=== PATIENT | male | born 1965 | race Caucasian/White ===

== ENCOUNTER 2016-12-18 18:12 | Observation (INO) | payer OTHER ==
[2016-12-18] MEDS ORDERED: Sodium Chloride 0.9% 1000 ML 1,000 ML IV STA (18:51)
[2016-12-18] MEDS ORDERED: Vancomycin 1GM/ Ns 250ML*** 1 GM/250 ML IVPB IV ONE (19:01)
[2016-12-18] MEDS ORDERED: Sodium Chloride 0.9% 1000 ML 1,000 ML ONE ×2 (19:02→20:47)
[2016-12-18] MEDS ORDERED: Vancomycin 1GM/ Ns 250ML*** 0 ML IV ONE (19:17)
[2016-12-18 19:20] LABS: BASOPHIL % 0.3 % (0.0-0.4); Eosinophil % 4.6 % (0.00-5.0); Granulocytes % 58.7 % (36.0-66.0); Lymphocytes % 25.2 % (24.0-44.0); Mean Cell Volume 83.8 fl (78-100); Mean Corpuscular Hemoglobin 26.9 pg (26-32); Mean Platelet Volume 9.7 fl (6-9.5); Monocytes % 11.2 % (0.0-12.0); Platelet Count 322 K/mm3 (150-450); Red Blood Count 5.42 M/mm3 (4.1-5.6); Red Cell Distribution Width 15.4 % (11.5-14.0); White Blood Count 8.8 K/mm3 (4.0-10.5)
[2016-12-18 19:35] LABS: ANION GAP 10.2 MEQ/L (5-15); BLOOD UREA NITROGEN 14 mg/dL (9-20); CHLORIDE 105 mEq/L (98-107); Carbon Dioxide 28.2 mEq/L (21-32); Glucose 102 MG/DL (70-110); Potassium 4.1 mEq/L (3.5-5.1); SODIUM 139 mEq/L (136-145)
[2016-12-18] MEDS ORDERED: Zofran 4 MG/2 ML VIAL IV ONE (19:39)
[2016-12-18] MEDS ORDERED: Levofloxacin 500MG/100ML D5W 500 MG/100 ML BAG IV STA (19:39)
[2016-12-18] MEDS ORDERED: Hydromorphone 1 mg/ml Ampule IV ONE (19:40)
--- NOTE | 2016-12-18 19:41 | ERPHSYRPT ---
- History of Present Illness Time Seen by Provider: 12/18/16 18:30 Source: patient Exam Limitations: clinical condition Patient Subjective Stated Complaint: PT REPORTS ULCER ON HIS LOWER LEFT LEG THAT HE HAS BEEN DOCTORING AT HOME ET STOP PICKING AT-STATES THAT THE PAIN HAS GOTTEN TO BAD-REPORTS BROWN TO GREEN DRAINAGE Triage Nursing Assessment: PT ALERT-ANSWERING ALL QEUSTIONS CORRECTLY-NO DRAINAGE NOTED AT THIS ITME BRENDA 4 X 2 ULCER NOTED-BRENDA 1 X 1 NOTED Physician History: PATIENT COMPLAINS OF PAINFUL ULCERATION OVER HIS LEFT LOWER CYR FOR MONTHS. DENIES FEVER OR CHILLS, TRAUMA OR INJURY. Method of Injury: other (DENIES INJURY) Occurred: other (ULCER FOR WEEKS) Severity of Pain-Max: moderate Severity of Pain-Current: moderate Lower Extremities Pain: leg: left Modifying Factors: Improves With: movement Associated Symptoms: other (PAIN IN CYR/CALF) Allergies/Adverse Reactions: penicillin G Allergy (Intermediate, Verified 12/18/16 18:23) Rash Penicillins Allergy (Verified 12/18/16 18:23) Home Medications: Gabapentin 400 mg [Neurontin 400 MG] 400 mg PO TID 11/03/14 [History] Lisinopril 20 mg [Zestril 20 MG] 20 mg PO DAILY 12/18/16 [History] Hx Tetanus, Diphtheria Vaccination/Date Given: Yes Hx Influenza Vaccination/Date Given: No Hx Pneumococcal Vaccination/Date Given: No Immunizations Up to Date: Yes - Review of Systems Constitutional: No Fever, No Chills Eyes: No Symptoms Ears, Nose, & Throat: No Symptoms Respiratory: No Symptoms, No Cough, No Dyspnea Cardiac: No Chest Pain, No Edema, No Syncope Abdominal/Gastrointestinal: No Symptoms, No Abdominal Pain, No Nausea, No Vomiting, No Diarrhea Genitourinary Symptoms: No Symptoms, No Dysuria Musculoskeletal: Other (LEG PAIN), No Back Pain, No Neck Pain Skin: Cellulitis, No Rash Neurological: No Symptoms, No Dizziness, No Focal Weakness, No Sensory Changes Psychological: No Symptoms Endocrine: No Symptoms All Other Systems: Reviewed and Negative - Past Medical History Pertinent Past Medical History: Yes Neurological History: Peripheral Neuropathy ENT History: No Pertinent History Cardiac History: Hypertension Respiratory History: No Pertinent History Endocrine Medical History: Diabetes Type II Musculoskeletal History: Other GI Medical History: No Pertinent History History: No Pertinent History Psycho-Social History: No Pertinent History Male Reproductive Disorders: No Pertinent History Other Medical History: Obesity; Recent Rotator Cuff Repair; Neurofibromatosis - Past Surgical History Past Surgical History: Yes Neuro Surgical History: No Pertinent History Cardiac: No Pertinent History Respiratory: No Pertinent History Gastrointestinal: No Pertinent History, Cholecystectomy Genitourinary: Kidney Surgery Musculoskeletal: No Pertinent History Other Surgical History: Something with the kidney, but doesn't remember - Social History Smoking Status: Never smoker Exposure to second hand smoke: No Drug Use: none Patient Lives Alone: No - Nursing Vital Signs Nursing Vital Signs: Initial Vital Signs Temperature 98.0 F Temperature Source Oral Pulse Rate 81 Respiratory Rate 18 Blood Pressure [] 138/88 Pain Intensity 10 - Physical Exam General Appearance: alert Eyes, Ears, Nose, Throat Exam: moist mucous membranes Neck Exam: non-tender, supple Cardiovascular/Respiratory Exam: chest non-tender, normal breath sounds, regular rate/rhythm, no respiratory distress Gastrointestinal/Abdominal Exam: non-tender, guarding Back Exam: normal inspection, No vertebral tenderness Legs Exam: left leg: pain, soft tissue tenderness (LEFT CALF AND CYR, THERE IS A 4CM X 7CM DECUBITUS DISTAL 3RD CYR NO DRAINAGE) Neuro/Tendon Exam: normal sensation, normal motor functions Mental Status Exam: alert, oriented x 3, cooperative Skin Exam: normal color, warm, dry SpO2: 96 Oxygen Delivery: Room Air - Radiology Ultrasound Exam Left Venous Lower Extremity Ultrasound: discussed w/radiologist (NO EVIDENCE OF DVT) Ordered Tests: Active Orders 24 hr Category Date Time Status VENOUS UNILAT/LIMITED EXTREMIT [US] Stat Exams 12/18/16 18:59 Taken BLOOD CULTURE Stat Lab 12/18/16 19:11 Received BMP Stat Lab 12/18/16 19:11 Completed CBC W DIFF Stat Lab 12/18/16 19:11 Completed CULTURE,WOUND Stat Lab 12/18/16 18:51 Ordered Transfer Order Routine Transfer 12/18/16 20:33 Ordered Medication Summary Discontinued Medications Generic Name Dose Route Start Last Admin Trade Name Freq PRN Reason Stop Dose Admin Hydromorphone HCl 1 mg 12/18/16 19:40 12/18/16 19:52 Hydromorphone 1 Mg/Ml Ampule IV 12/18/16 19:41 1 mg STAT ONE Administration Hydromorphone HCl Confirm 12/18/16 19:48 Hydromorphone 1 Mg/Ml Ampule Administered 12/18/16 19:49 Dose 1 mg .ROUTE .STK-MED ONE Sodium Chloride 1,000 mls @ 999 mls/hr 12/18/16 18:51 12/18/16 19:13 Sodium Chloride 0.9% 1000 Ml IV 12/18/16 19:51 999 mls/hr .Q1H1M STA Administration Vancomycin HCl 1 gm in 250 mls @ 167 mls/hr 12/18/16 19:01 12/18/16 20:29 Vancomycin 1gm/ Ns 250ml IV 12/18/16 20:30 Not Given STAT ONE Sodium Chloride Confirm 12/18/16 19:02 Sodium Chloride 0.9% 1000 Ml Administered 12/18/16 19:03 Dose 1,000 mls @ ud .ROUTE .STK-MED ONE Vancomycin HCl Confirm 12/18/16 19:17 Vancomycin 1gm/ Ns 250ml Administered 12/18/16 19:18 Dose 250 mls @ ud IV .STK-MED ONE Levofloxacin/Dextrose 500 mg in 100 mls @ 100 mls/hr 12/18/16 19:39 12/18/16 19:52 Levofloxacin 500mg/100ml D5w IV 12/18/16 20:38 100 mls/hr STAT STA Administration Levofloxacin/Dextrose Confirm 12/18/16 19:48 Levofloxacin 500mg/100ml D5w Administered 12/18/16 19:49 Dose 500 mg in 100 mls @ ud IV .STK-MED ONE Ondansetron HCl 4 mg 12/18/16 19:39 12/18/16 19:52 Zofran 4 Mg/2 Ml Vial IV 12/18/16 19:40 4 mg STAT ONE Administration Ondansetron HCl Confirm 12/18/16 19:48 Zofran 4 Mg/2 Ml Vial Administered 12/18/16 19:49 Dose 4 mg .ROUTE .STK-MED ONE Lab/Rad Data: Laboratory Result Diagrams 12/18/16 19:11 12/18/16 19:11 Laboratory Results 12/18/16 12/18/16 Range/Units 19:11 19:11 WBC 8.8 (4.0-10.5) K/mm3 RBC 5.42 (4.1-5.6) M/mm3 Hgb 14.6 (12.5-18.0) gm/dl Hct 45.4 (42-50) % MCV 83.8 (78-100) fl MCH 26.9 (26-32) pg MCHC 32.2 (32-36) g/dl RDW 15.4 H (11.5-14.0) % Plt Count 322 (150-450) K/mm3 MPV 9.7 H (6-9.5) fl Gran % 58.7 (36.0-66.0) % Lymphocytes % 25.2 (24.0-44.0) % Monocytes % 11.2 (0.0-12.0) % Eosinophils % 4.6 (0.00-5.0) % Basophils % 0.3 (0.0-0.4) % Basophils # 0.03 (0-0.4) Sodium 139 (136-145) mEq/L Potassium 4.1 (3.5-5.1) mEq/L Chloride 105 (98-107) mEq/L Carbon Dioxide 28.2 (21-32) mEq/L Anion Gap 10.2 (5-15) MEQ/L BUN 14 (9-20) mg/dL Creatinine 0.84 (0.55-1.30) mg/dl Estimated GFR > 60 ML/MIN Glucose 102 (70-110) MG/DL Calcium 9.5 (8.5-10.1) mg/dL - Progress Progress Note: 12/18/16 20:21 PATIENT GIVEN LEVAQUIN 500MG IVPB AFTER 2 SETS OF BLOOD CULTURES OBTAINED. Discussed with : Stephan (DISCUSSED WITH DR KENT AT 2014 FOR OBSERVATION) - Departure Time of Disposition: 20:35 Departure Disposition: Observation Clinical Impression: LEFT LOWER EXTREMITY DECUBITI/CELLULITIS Condition: Stable Critical Care Time: No Referrals: RUT KENT [Primary Care Provider] -
[2016-12-18] MEDS ORDERED: Hydromorphone 1 mg/ml Ampule ONE (19:48)
[2016-12-18] MEDS ORDERED: Levofloxacin 500MG/100ML D5W 500 MG/100 ML BAG IV ONE (19:48)
[2016-12-18] MEDS ORDERED: Zofran 4 MG/2 ML VIAL ONE (19:48)
[2016-12-18] MEDS ORDERED: Sodium Chloride 0.9% 1000 ML 1,000 ML IV SCH (21:00)
[2016-12-18] MEDS ORDERED: TYLENOL 325 MG PO PRN (21:11)
[2016-12-18] MEDS ORDERED: Norco 10/325 MG Tablet PO PRN (21:11)
[2016-12-18] MEDS: Neurontin 400 MG PO SCH (22:06)
[2016-12-19] MEDS: Sodium Chloride 0.9% 1000 ML 1,000 ML IV SCH ×2 (00:13→14:07)
--- NOTE | 2016-12-19 08:24 | XRAY ---
Exam: Duplex Doppler venous ultrasound examination of the left lower extremity from 12/18/2016. Comparison: Duplex Doppler venous ultrasound examination of the left lower extremity from 10/31/2014. Indication: Left leg pain. Technique: Longitudinal and transverse real-time sonograms were obtained of the left lower extremity with grayscale imaging. In addition, longitudinal color flow images were obtained as well as Doppler tracings without and with augmentation. Findings: Associate Professor Of History sections of the left common femoral vein, proximal, mid, and distal superficial femoral vein, popliteal vein, and distal posterior tibial veins reveal normal color flow imaging and transducer compression at all deep venous segments. Spontaneous and phasic Doppler waveforms were noted with good augmentation at all levels. Normal color flow and Doppler signal augmentation was seen with an a cash applications representative sections of the left profunda femoral vein. In addition, some images of the greater saphenous vein within the proximal left thigh revealed normal color flow and spontaneous and phasic waveforms with good Doppler signal augmentation. Impression: 1. No findings of deep venous thrombosis are seen within the left lower extremity. Also, no superficial venous thrombosis is seen within the greater saphenous vein within the proximal left thigh.
[2016-12-19] MEDS ORDERED: Cleocin Phosphate IV 600 MG/4 ML IV SCH (09:15)
--- NOTE | 2016-12-19 09:23 | HP ---
HISTORY OF PRESENT ILLNESS: This is a 51 year-old man who presented to the emergency department last night. He reports that the sore on his left lower leg is getting worse with increasing surrounding erythema. He reports that he had some AKASH hose and when he pulled those off there was a water blister and the top of it seemed to off. He denies any fever. He states his leg has been sore. He reports otherwise he has been feeling well. He denies any fever. No chest pain. No shortness of breath. REVIEW OF SYSTEMS: No nausea or vomiting. He has a good appetite. He reports he has been watching his diet and losing weight. He continues to have some urinary urgency. Otherwise the review of systems is negative. PAST MEDICAL HISTORY: Hypertension. Erectile dysfunction. Neurofibromatosis type 1. Neuropathy. Obesity Hyperglycemia. Benign prostatic hypertrophy. PAST SURGICAL HISTORY: Right rotator cuff surgery with Dr. Fabricio Pink 10/02/2015. MEDICATIONS: Gabapentin 400 mg p.o. t.i.d., lisinopril 20 mg p.o. daily, Tamsulosin 0.4 mg p.o. daily. ALLERGIES: PENICILLIN, VANCOMYCIN REPORTS GIVES HIM JENNIFER SYNDROME. SOCIAL HISTORY: He is and lives with his . 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 He denies any tobacco use or alcohol use. FAMILY HISTORY: His mother had diabetes mellitus type 2 and when she was 64. His father had hemorrhagic stroke and when he was 72. PHYSICAL EXAMINATION: VITAL SIGNS: Temperature current 98.4F, temperature max 98.4F, heart rate 66 to 81, respiratory rate 17 to 20, blood pressure 112 to 138 over 55 to 88. Oxygen saturation 96 to 97% on room air. GENERAL: The patient is a pleasant talkative man sitting up in no acute distress. CVS: He has a regular rate and rhythm. No murmurs, gallops or rubs. CHEST: Clear to auscultation bilaterally. No crackles or wheezes. ABDOMEN: Soft, nontender, nondistended with normal bowel sounds. EXTREMITIES: He has approximately 9 x 4 cm clean base open sore of his left lower leg with 4 to 8 mm with surrounding erythema. No active drainage. No induration. There is tenderness around the open sore. Right leg there is no open wounds. He has multiple neurofibromas over his body. LABORATORY DATA AND TESTS: His CBC was within normal limits. BMP within normal limits. ASSESSMENT AND PLAN: 1) CELLULITIS OF HIS LEFT LOWER EXTREMITY: He was initially started on levofloxacin but he does have a history of methicillin resistant staphylococcus aureus so I am going to change this to clindamycin 300 mg IV every six hours. Will ask physical therapy to consult regarding the wound. 2) OPEN WOUND OF HIS LEFT LOWER LEG: Will ask physical therapy to consult. 3) HISTORY OF HYPERTENSION: His blood pressure is actually on the low end of normal this morning so will hold his oral antihypertensive at this time. 4) HISTORY OF NEUROPATHY: Will continue with the gabapentin.
[2016-12-19] MEDS: Neurontin 400 MG PO SCH ×3 (09:29→21:25)
[2016-12-19] MEDS: Cleocin Phosphate IV 300 MG/50 ML*** 300 MG/50 ML IVPB IV SCH ×3 (09:29→21:25)
[2016-12-19] MEDS: NORCO 5/325 MG PO PRN (09:43)
[2016-12-19] MEDS ORDERED: Levofloxacin 500MG/100ML D5W 500 MG/100 ML BAG IV SCH (10:00)
[2016-12-19] MEDS ORDERED: Zestril 20 MG PO SCH (10:00)
[2016-12-19] MEDS: Flomax 0.4 MG PO SCH (10:10)
[2016-12-20] MEDS: NORCO 5/325 MG PO PRN (00:29)
[2016-12-20] MEDS: Cleocin Phosphate IV 300 MG/50 ML*** 300 MG/50 ML IVPB IV SCH ×2 (03:06→08:46)
[2016-12-20 07:01] VITALS: BP 130/64; PULSE 68; O2SAT 98
--- NOTE | 2016-12-20 08:19 | PCM.DCORD ---
- Discharge Discharge Date: 12/20/16 Disposition: Home, Self-Care Condition: Fair Prescriptions: New Clindamycin HCl [Cleocin HCl] 300 mg PO QID #40 capsule Acetaminophen 325 mg [Tylenol 325 mg] 650 mg PO Q4H PRN PRN #0 tablet PRN Reason: Pain And/Or Fever Continue Gabapentin 400 mg [Neurontin 400 MG] 400 mg PO TID Tamsulosin HCl 0.4 mg [Flomax 0.4 MG] 0.4 mg PO DAILY Discontinued Lisinopril 20 mg [Zestril 20 MG] 20 mg PO DAILY Additional Instructions: Physical therapy to treat wound as outpatient. Follow up with: RUT KENT [Primary Care Provider] - Forms: Patient Portal Information
[2016-12-20] MEDS: Neurontin 400 MG PO SCH (08:46)
[2016-12-20] MEDS: Flomax 0.4 MG PO SCH (08:46)
== END 2016-12-20 10:44 | disposition home or self-care (01) ==
LOC: ED 18:12 → MED SURG 21:03
PROVIDERS: ADMIT Internal Medicine; ATTEND Internal Medicine
DX: L03.116 Cellulitis of left lower limb (principal); S81.802A Unspecified open wound, left lower leg, initial encounter; M79.605 Pain in left leg; I10 Essential (primary) hypertension; G62.9 Polyneuropathy, unspecified; E11.9 Type 2 diabetes mellitus without complications; Z79.899 Other long term (current) drug therapy
CPT/HCPCS: 36415; 80048; 85025; 87040; 87070; 87077; 87186; 93971; 94760; 99285; A6457; G0378; J1170; J1956; J2405; J3370; A9270-GY